=== PATIENT | male | born 1945 | race Caucasian/White ===

== ENCOUNTER 2017-02-24 06:49 | Emergency (ER) | payer OTHER ==
[~2017-02-24] VITALS: Ht 170.2 cm; Wt 74.8 kg
[2017-02-24] MEDS ORDERED: LIPITOR 20 MG T20 M1 PO (07:11)
[2017-02-24] MEDS ORDERED: HYDROCHLOROTH12.5 M1 PO (07:11)
[2017-02-24] MEDS ORDERED: VITAMIN D1000 UNI1 PO (07:12)
[2017-02-24] MEDS ORDERED: ASPIR 8181 MG PO (07:12)
[2017-02-24] MEDS ORDERED: BETIMOL15 ML OP (07:12)
[2017-02-24] MEDS ORDERED: K-DUR 20 MEQ T20 MEQ PO (07:13)
[2017-02-24 07:33] LABS: ABSOLUTE NEUTROPHILS 3.9 thou/uL (1.4-8.2); BASOPHILS 0.9 % (0.0-2.0); EOSINOPHILS 2.5 % (0.0-3.0); HEMATOCRIT 43.3 % (42.0-52.0); HEMOGLOBIN 14.8 gm/dL (14.0-18.0); LYMPHOCYTES 22.9 % (24.0-44.0); MCH 30.7 pg (26.0-34.0); MCHC 34.2 g/dL (28.0-37.0); MCV 89.7 fL (80.0-100.0); MONOCYTES 11.1 % (1.0-8.0); PLATELET COUNT 209 thou/uL (150-400); POLYS 62.6 % (36.0-66.0); RBC 4.82 mil/uL (4.50-6.00); RDW 14.4 % (10.5-14.5); WBC 6.2 thou/uL (4.0-11.0)
[2017-02-24 07:38] LABS: MANUAL DIFF NO
[2017-02-24 07:42] LABS: CALCIUM 9.1 mg/dL (8.5-10.1); CREATININE 1.1 mg/dL (0.7-1.3); POTASSIUM 3.7 mmol/L (3.5-5.1)
[2017-02-24 07:51] LABS: APTT 21.7 Seconds (24.5-32.8); PROTIME 9.7 Seconds (9.3-11.4)
[2017-02-24 09:02] VITALS: BP 149/88
== END 2017-02-24 09:03 | disposition home or self-care (01) ==
LOC: ER 06:49
PROVIDERS: Emergency Medicine
DX: N50.1 Vascular disorders of male genital organs (principal); I10 Essential (primary) hypertension; E78.00 Pure hypercholesterolemia, unspecified; F10.99 Alcohol use, unspecified with unspecified alcohol-induced disorder; Z85.46 Personal history of malignant neoplasm of prostate; Z88.1 Allergy status to other antibiotic agents